=== PATIENT | male | born 1975 | race African-American/Black ===

== ENCOUNTER → 2021-03-11 | Emergency (ER) | payer SELFPAY ==
--- OUTSIDE RECORDS SUMMARY | 2021-03-11 18:28 | XMS REPORT | Continuity of Care Document ---
:1975 Author Organization [facility] Address [address] [place] [address] Dr. Brink [address] [place] [id number] Care Team Providers Name Role Phone ALFREDO, A Primary Care Physician Unavailable ALFREDO, A Attending Clinician Unavailable Payers Payer Name Policy Type Policy Number Effective Date Expiration Date S ource Problems This patient has no known problems. Allergies, Adverse Reactions, Alerts This patient has no known allergies or adverse reactions. Medications This patient has no known medications. Procedures This patient has no known procedures. 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 2021-01-25 2021-01-25 Outpatient [facility] [id number] [place] 09:12:25 09:37:38 [facility] 2021-01-24 2021-01-24 Outpatient [facility] [id number] [place] 10:45:39 12:37:54 [facility] [place] 2020-11-30 2020-11-30 Outpatient [facility] [id number] [place] 00:00:00 00:00:00 [facility] | mentor | invest 2020-11-28 2020-11-28 Outpatient [facility] [id number] [place] 00:00:00 00:00:00 [facility] [place] 2020-11-15 2020-11-15 Outpatient [facility] [id number] [place] 10:10:31 10:31:22 [facility] 2020-11-15 2020-11-15 Out[facility] [id number] [place] 00:00:00 00:00:00 [facility] 2020-11-08 2020-11-08 Outpatient [facility] [id number] [place] 00:00:00 00:00:00 [facility] 2020-11-08 2020-11-08 Out[facility] [id number] [place] 00:00:00 00:00:00 [facility] 2020-10-20 2020-10-20 [facility] [id number] [place] 00:00:00 00:00:00 [facility] 2020-10-19 2020-10-19 Out[facility] [id number] [place] 08:48:57 08:49:25 [facility] 2020-10-19 2020-10-19 [facility] [id number] [place] 06:54:29 08:18:11 [facility] 2020-10-19 2020-10-19 [facility] [id number] [place] 00:00:00 00:00:00 [facility] [place] 2020-10-11 2020-10-11 [facility] [id number] [place] 09:23:19 09:56:54 [facility] [place] 2020-10-11 2020-10-11 Out[facility] [id number] [place] 08:54:18 09:01:02 [facility] [place] 2020-10-11 2020-10-11 Out[facility] [id number] [place] 00:00:00 00:00:00 [facility] [place] 2020-09-20 2020-09-20 [facility] [id number] [place] 06:27:18 15:51:59 [facility] [place] Results This patient has no known results."
== END ==
LOC: ER 18:15
DX: Z02.89 Encounter for other administrative examinations (principal)